=== PATIENT | female | born 1990 | race Caucasian/White ===

== ENCOUNTER 2018-06-21 13:41 | Emergency (ER) | payer OTHER ==
[2018-06-21] MEDS: IBUPROFEN 600 MG TAB PO (15:36)
== END 2018-06-21 18:10 | disposition home or self-care (01) ==
LOC: FTE 13:41
DX: S90.02XA Contusion of left ankle, initial encounter (principal); S89.92XA Unspecified injury of left lower leg, initial encounter; I50.9 Heart failure, unspecified; W18.49XA Other slipping, tripping and stumbling without falling, initial encounter; Y92.9 Unspecified place or not applicable
CPT/HCPCS: 29515; 73562; 73610; 99283-25